=== PATIENT | female | born 1980 | race Two or more races ===

== ENCOUNTER 2018-05-09 19:21 | Emergency (ER) | payer OTHER ==
[~2018-05-09] VITALS: Ht 165.1 cm; Wt 72.6 kg
[2018-05-09 20:12] VITALS: Ht 165.1 cm; Wt 72.6 kg
[2018-05-09 21:50] VITALS: BP 147/78
== END 2018-05-09 21:50 | disposition home or self-care (01) ==
LOC: ED 19:21
DX: M62.838 Other muscle spasm (principal); R20.2 Paresthesia of skin